=== PATIENT | female | born 1950 | race Caucasian/White ===

== ENCOUNTER 2018-07-25 15:34 | Emergency (ER) | payer MEDICARE, OTHER ==
[~2018-07-25] VITALS: Ht 154.9 cm; Wt 100.0 kg
--- NOTE | 2018-07-25 16:26 | RAD ---
Right tibia and fibula 2 views. HISTORY: Dog bite lower right leg AP and lateral views were taken of the right tibia and fibula. There is mild soft tissue swelling. There is no acute fracture. There is mild arthritis at the knee with mild spurring. IMPRESSION: 1. Mild arthritis right knee. 2. No fracture or acute osseous abnormality right tibia fibula. Electronically signed by: Nima Yousif MD (07/25/2018 4:22 PM) [facility]
[2018-07-25] MEDS ORDERED: CLIN300C8 PO (16:29)
[2018-07-25] MEDS ORDERED: DIPHTH,PERTUSS(ACELL),TET TOX 0.5 ML DISP.SYRIN. VAX IM ONE (16:30)
[2018-07-25 16:44] VITALS: BP 130/68
--- NOTE | 2018-07-25 17:19 | PHYS DOC ---
Adult General Chief Complaint Chief Complaint: ANIMAL BITE HPI HPI Patient is a 67-year-old female presenting with animal bite. Apparently she was out weed whacking the neighbor's dogs take that and they snuck out the garage door and they came over AND bIT HER on the leg. The police have been here and had a report filed already. Current Medications Current Medications Current Medications Medications (Trade) Dose Ordered Sig/Morteza Start Time Stop Time Status Last Admin Dose Admin Diphtheria/ Tetanus/Acell Pertussis (Boostrix) 0.5 ml ONCE ONCE 07/25/18 16:30 07/25/18 16:31 DC 07/25/18 16:47 0.5 ML PT IS ON COUMADIN, HX OF B/L PES. GOAL INR 2.5 -3.5 JUST CHECKED AND IT WAS 3.3 EARLIER TODAY Allergies Allergies Allergies Coded Allergies Type Severity Reaction Last Updated Verified Penicillins Allergy Unknown 07/25/18 Yes Physical Exam Physical Exam Constitutional: Well developed, well nourished, no acute distress, non-toxic appearance. [] HENT: Normocephalic, atraumatic, bilateral external ears normal, oropharynx moist, no oral exudates, nose normal. [] Pulmonary: Normal respiratory effort no increased work of breathing no obvious chest wall trauma Skin: Warm, dry, no erythema, patient is a 0.5 cm losing punctate laceration losing blood in the medial tibia area on the right leg. B Extremities: No tenderness, no cyanosis, no clubbing, ROM intact, no edema. [] Distal sensation and motor function is intact Neurologic: Alert and oriented X 3, normal motor function, normal sensory function, no focal deficits noted. [] Psychologic: Affect normal, judgement normal, mood normal. [] EKG EKG [] Radiology/Procedures Radiology/Procedures [] Impressions: No foreign body ON tibia Course & Med Decision Making Course & Med Decision Making Pertinent Labs and Imaging studies reviewed. (See chart for details) Laceration repair verbal consent obtained wound irrigated profusely no foreign body was identified it was closed with 2 4-0 nylon simple interrupted sutures with good hemostasis additional hemostasis was obtained with a pressure dressing. Patient tolerated well wound care instructions PROVIDED. I talked to the patient about the risks and benefits of prophylactic antibiotic she does prefer antibiotics as she is a prediabetic. Clindamycin will be given. She was instructed on the importance of INR follow-up including to check it at least once in the next 3-4 days and to call with any INRs out of range to discuss additional plans. She is agreeable to this. Terri Disclaimer Terri Disclaimer This electronic medical record was generated, in whole or in part, using a voice recognition dictation system. Departure Departure: Impression: Primary Impression: Elevated blood pressure reading Additional Impression: Animal bite Disposition: HOME, SELF-CARE Condition: STABLE Patient Instructions: Animal Bite, [id number] Additional Instructions: GET COUMADIN CHECKED THIS WEEK. GET BP CHECKED IN ONE MONTH Scripts Clindamycin Hcl (CLINDAMYCIN HCL) 300 Mg Capsule 1 CAP PO TID, #15 CAP Prov: KOBE LIMA MD 07/25/18 Problem Qualifiers KOBE LIMA MD Jul 25, 2018 17:19
== END 2018-07-25 16:52 | disposition home or self-care (01) ==
LOC: ER 15:34
DX: S81.811A Laceration without foreign body, right lower leg, initial encounter (principal); I10 Essential (primary) hypertension; Z88.0 Allergy status to penicillin; W54.0XXA Bitten by dog, initial encounter; Y93.89 Activity, other specified; Y92.89 Other specified places as the place of occurrence of the external cause; Y99.8 Other external cause status
CPT/HCPCS: 12001; 73590; 90471; 90715; 99284-25